=== PATIENT | female | born 1975 ===

== ENCOUNTER → 2021-09-23 17:23 | Outpatient (CLI) | payer OTHER, SELFPAY ==
--- NOTE | ~2021-09-23 | MR_ITS ---
EXAMINATION: MR elbow LT wo con DATE: 09/23/2021 18:16 INDICATION: Lateral epicondylitis of left elbow. Left elbow pain. TECHNIQUE: Magnetic resonance imaging (MRI) of the left elbow was performed without intravenous contr ast. Sequences included coronal, axial, and sagittal PD-weighted FS FSE and coronal, axial, and sagit otto PD-weighted FSE. COMPARISON: None FINDINGS: Osseous/other: Bone alignment is normal. No fracture. There is edema-like marrow signal intensity in medial and late ral humeral epicondyles. The elbow joint cartilage is normal. Tendons: The brachialis tendon and biceps tendon are normal. The triceps tendon is normal. There is severe ten dinopathy of the common extensor tendon at its attachment to lateral humeral epicondyle. The common f lexor tendon is normal. Ligaments: Radial collateral ligament, lateral ulnar collateral ligament, and ulnar collateral ligament are norm al. Cubital tunnel: The ulnar nerve is normal. Subcutaneous edema overlies the cubital tunnel and medial humeral epicondy le. Fluid: There is no joint effusion. IMPRESSION: 1. Severe tendinopathy of common extensor tendon at its attachment to lateral humeral epicondyle. No tear. Reviewed, dictated and finalized at location A. SUPPORT SERVICE TECH IMPRESSION: 1. Severe tendinopathy of common extensor tendon at its attachment to lateral h umeral epicondyle. No tear.
== END ==
DX: M77.12 Lateral epicondylitis, left elbow (principal)
CPT/HCPCS: 73221